=== PATIENT | female | born 1960 | race Caucasian/White ===

== ENCOUNTER → 2016-12-05 | Outpatient (CLI) | payer OTHER ==
[2016-12-05 09:57] VITALS: BP 111/74; PULSE 76; RESP 16; TEMP 98.2; BMI 27.9
--- NOTE | 2016-12-05 16:11 | MM ---
EXAMINATION TYPE: MG ductogram single duct RT DATE OF EXAM: 12/05/2016 COMPARISON: 10/14/2016 CLINICAL HISTORY: Bloody nipple discharge right breast TECHNIQUE: Patient was able to express some white bloody discharge from the center of the nipple. A 3 0-gauge catheter was placed into the duct. Omnipaque 180 was administered in retrograde fashion. Adria graphy and a mammogram were obtained from the cranial caudal position. FINDINGS: Contrast extends into the duct on a normal branching pattern. There is a branch 2.0 cm from the nipple which has an abrupt cut off. There is some mammographic increased density in this region which appears nonspecific by mammographic criteria. An obstructed duct should be considered at this l evel. The patient tolerated the procedure well without any immediate complication. IMPRESSION: Successful ductogram right breast. A abrupt cut off within the anterior right breast is evident appears to correspond to mammographic density
== END | disposition home or self-care (01) ==
LOC: RADMAMWWP 09:31
PROVIDERS: ATTEND Surgery
DX: R92.8 Other abnormal and inconclusive findings on diagnostic imaging of breast (principal); N64.52 Nipple discharge
CPT/HCPCS: 77053; 19030; Q9965

== ENCOUNTER 2017-02-10 09:41 | Day surgery (SDC) | payer OTHER ==
[2017-02-05 11:05] VITALS: BMI 28.3
[~2017-02-10 09:41] MED LIST: DEXAMETHASONE SOD PHOSPHATE 10 MG/ML 1 ML VIAL IV ONE; HEPARIN SODIUM,PORCINE 5,000 UNIT/ML 1 ML VIAL SQ ONE; LACTATED RINGERS 1,000 ML IV SCH; MIDAZOLAM 2 MG/2 ML VIAL IV PRN; Pre Op ABX Message 1 EACH MISC MISCELLANE ONE; SCOPOLAMINE 1.5MG/72HR PATCH TRANSDERM ONE
[2017-02-10] MEDS ORDERED: LIDOCAINE 1% 20 ML VIAL (10MG/ML) FOR IV START INTRADERMA ONE (10:37)
[2017-02-10] MEDS: ONDANSETRON 4 MG/2 ML VIAL IVP ONE ×2 (10:38→14:03)
[2017-02-10] MEDS ORDERED: ALPRAZolam 0.5 MG TAB PO ONE (10:38)
[2017-02-10] MEDS ORDERED: LIDOCAINE 1% INJ 10MG/ML (20 ML MDV) SQ ONE ×3 (11:54→13:38)
[2017-02-10] MEDS ORDERED: HEPARIN SODIUM,PORCINE 5,000 UNIT/ML 1 ML VIAL SQ ONE (12:10)
[2017-02-10] MEDS ORDERED: fentaNYL (PF) 50 MCG/ML 2 ML AMP ONE (12:46)
[2017-02-10] MEDS ORDERED: ePHEDrine SULFATE/0.9% NACL/PF 50 MG/5 ML SYRINGE IV ONE (12:46)
[2017-02-10] MEDS ORDERED: PROPOFOL 10 MG/ML 20 ML VIAL IV ONE (12:46)
[2017-02-10] MEDS ORDERED: LIDOCAINE 1% INJ 10MG/ML (20 ML MDV) ONE (12:46)
[2017-02-10] MEDS ORDERED: MIDAZOLAM 2 MG/2 ML VIAL ONE (12:46)
[2017-02-10] MEDS ORDERED: SODIUM CHLORIDE 0.9% 0 ML with ceFAZolin 2,000 MG IV ONE ×2 (12:55)
--- NOTE | 2017-02-10 13:49 | P.OP ---
Date of Procedure: 02/10/17 Preoperative Diagnosis: Bloody nipple discharge right breast Postoperative Diagnosis: Same Procedure(s) Performed: Right breast needle localization and duct exploration biopsy Anesthesia: JESSEA Surgeon: Tawana Lopze Estimated Blood Loss (ml): 5 IV fluids (ml): 500 Pathology: other (Breast tissue) Condition: stable Disposition: PACU Indications for Procedure: Bloody nipple discharge right breast, abnormal ductogram Operative Findings: Dilated duct extending up to nipple Description of Procedure: Patient was taken to the operating room and the right breast was prepped and draped in a sterile fashion, following induction of general anesthesia. 1% lidocaine was used to anesthetize the circumareolar area. A circumareolar incision was made and carried down through the skin and subcutaneous tissue to the breast tissue. The needle localizing the area of concern was identified and dissection was carried from the just under the nipple down to the area of the hook of the needle and down onto the chest wall. The tissue was noted to have some dilated ducts which. The blue blood. The specimen was removed and painted for marking. The specimen was then sent to radiology for confirmation that the area of concern had been removed was obtained. The biopsy cavity was well irrigated. After assured that hemostasis was attained using electrocautery device titanium clips were placed. The deep tissues were approximated using 3-0 Vicryl suture. This is followed by closure of the skin with 4-0 Monocryl and nylon. Patient tolerated procedure in stable condition. All instrument and sponge counts were correct at the end of the case.
--- NOTE | 2017-02-10 13:51 | P.DS ---
Providers Attending physician: Tawana Lopez Primary care physician: Kayla Motta Plan - Discharge Summary New Discharge Prescriptions: No Action traZODone HCL [TraZODone HCl] 50 mg PO HS PRN PRN Reason: SLEEP Aspirin 81 mg PO DAILY Escitalopram [Lexapro] 10 mg PO HS Albuterol Inhaler [Ventolin Hfa Inhaler] 2 puff INHALATION BID PRN PRN Reason: sob Discharge Medication List Aspirin 81 mg PO DAILY 11/28/16 [History] traZODone HCL [TraZODone HCl] 50 mg PO HS PRN 11/28/16 [History] Albuterol Inhaler [Ventolin Hfa Inhaler] 2 puff INHALATION BID PRN 02/05/17 [ History] Escitalopram [Lexapro] 10 mg PO HS 02/05/17 [History] Follow up Appointment(s)/Referral(s): Tawana Lopez MD [STAFF PHYSICIAN] - 1 Week Activity/Diet/Wound Care/Special Instructions: May shower after 48 hours wear surgical wrap at all times Do not drive today, do not drive if taking narcotic pain medication Discharge Disposition: HOME SELF-CARE
[2017-02-10 13:59] VITALS: TEMP 97.2
[2017-02-10] MEDS: HYDROmorphone 0.5 MG/0.5 ML SYRINGE IVP PRN ×2 (14:02→14:09)
[2017-02-10 14:37] VITALS: RESP 18
[2017-02-10] MEDS ORDERED: HYDROcodone/APAP 5-325MG 1 EACH TAB PO ONE (14:45)
[2017-02-10 14:51] VITALS: BP 132/68; PULSE 78
--- NOTE | 2017-02-10 16:14 | MM ---
EXAMINATION TYPE: MG surgical specimen RT DATE OF EXAM: 02/10/2017 COMPARISON: NONE CLINICAL HISTORY: Abnormal ductogram FINDINGS: Single mammographic specimen is presented. Wire appears displaced from the specimen. There is an area within the specimen which could correspond to the finding localized. Confirmation of the density adjacent to the wire however cannot be performed as wire does not appear to be within the specimen. Preliminary results were called to the operating room. IMPRESSIONS: Single mammographic specimen. Wire is intact medially displaced within the specimen Pathology Results: High Risk A. RIGHT DILATED DUCT: BENIGN BREAST TISSUE WITH FIBROCYSTIC CHANGES AND DUCT ECTASIA. B. BREAST, RIGHT, NEEDLE LOCALIZATION EXCISION: INTRADUCTAL PAPILLOMA, MARGINS NEGATIVE. BACKGROUND FIBROCYSTIC CHANGES INCLUDING CYSTS, FIBROSIS, SCLEROSING ADENOSIS AND MICROCALCIFICATIONS. Recommendation Surgical consult of the right breast. BETHANY
--- NOTE | 2017-02-10 16:18 | MM ---
EXAMINATION TYPE: MG pre op needle loc RT DATE OF EXAM: 02/10/2017 COMPARISON: NONE CLINICAL HISTORY: Abnormal ductogram TECHNIQUE: Needle localization with wire placement and surgical excision of area of concern in the right breast. FINDINGS: The procedure of needle localization with wire placement and than surgical excision was explained to the patient. Benefits, alternatives, and risks were discussed. An informed consent was then obtained. The shortest pathway for procedure was chosen. Shortest pathway was inferior approach. This would place the needle and wire adjacent to the density associated with a blockage of the ductogram. The overlying skin was prepped in usual sterile fashion. Lidocaine was used as anesthetic into the skin and subcutaneous tissue up to the level of area of concern. A 7 cm needle was used. It was placed via a inferior approach under mammographic guidance. Subsequent 90 degrees mammogram show the needle to be in satisfactory position relative to the targeted area. At this point, wire was placed and the needle was withdrawn. The wire was fixed to patient's skin. Orthogonal Images were marked for surgeon. The patient tolerated the procedure well without any immediate complication. The patient was kept in the radiology department for short stay after the procedure and then taken to surgery for surgical excision. IMPRESSION: 1. Successful localization of density within the inferior medial right breast. Pathology Results: High Risk A. RIGHT DILATED DUCT: BENIGN BREAST TISSUE WITH FIBROCYSTIC CHANGES AND DUCT ECTASIA. B. BREAST, RIGHT, NEEDLE LOCALIZATION EXCISION: INTRADUCTAL PAPILLOMA, MARGINS NEGATIVE. BACKGROUND FIBROCYSTIC CHANGES INCLUDING CYSTS, FIBROSIS, SCLEROSING ADENOSIS AND MICROCALCIFICATIONS. Recommendation Surgical consult of the right breast. BETHANY
== END 2017-02-10 15:15 | disposition home or self-care (01) ==
LOC: OR 09:41
PROVIDERS: ATTEND Surgery
DX: N60.41 Mammary duct ectasia of right breast (principal); D24.1 Benign neoplasm of right breast; N60.31 Fibrosclerosis of right breast; N60.21 Fibroadenosis of right breast; R92.0 Mammographic microcalcification found on diagnostic imaging of breast; J45.909 Unspecified asthma, uncomplicated; F17.200 Nicotine dependence, unspecified, uncomplicated
CPT/HCPCS: 19125; 88305; 88307; 76098; 19281; J2250; J1644; J1100; J2405; J2001; J3010; J0690; J2704; J1170